=== PATIENT | male | born 1995 | race Caucasian/White ===

== ENCOUNTER → 2020-04-23 | Day surgery (SDC) | payer OTHER ==
[~2020-04-23] MED LIST: AMOXICILLIN500 MG PO; MOTRIN600 MG PO
[2020-04-23 09:47] LABS: BASOPHIL 0.7 % (0-2); EOSINOPHIL 2.6 % (0-5); HCT 38.3 % (42.0-52.0); HGB 12.3 g/dl (13.2-18.0); LYMPHOCYTE 28.8 % (15-48); MCH 28.4 pg (25.0-31.0); MCHC 32.1 g/dL (32.0-36.0); MCV 88.5 fL (78.0-100.0); MONOCYTE 8.9 % (0-12); NEUTROPHIL 58.8 % (41-80); NRBC 0; PLT 300 K/uL (150-400); RBC 4.33 M/uL (4.70-6.00); RDW 12.3 % (11.5-14.0)
== END | disposition home or self-care (01) ==
LOC: FAS 08:56
PROVIDERS: Oral & Maxillofacial Surgery
DX: K02.63 Dental caries on smooth surface penetrating into pulp (principal); K01.1 Impacted teeth; K04.7 Periapical abscess without sinus; F17.210 Nicotine dependence, cigarettes, uncomplicated; Z20.822 Contact with and (suspected) exposure to COVID-19
CPT/HCPCS: 36415; 85025; J1100; J2704; J2710; J3010; J7120